=== PATIENT | female | born 1970 | race Caucasian/White ===

== ENCOUNTER 2020-02-26 13:03 | Emergency (ER) | payer BC, SELFPAY ==
[2020-02-26 13:40] VITALS: BP 142/83; PULSE 81; RESP 18; TEMP 37.6; O2SAT 99
--- NOTE | 2020-02-26 14:02 | ED.DENTAL ---
HPI - Dental/Oral General Chief complaint: Dental/Oral Stated complaint: Abcess/Tooth Time Seen by Provider: 02/26/20 14:03 Source: patient and RN notes reviewed History of Present Illness HPI Narrative: Patient is a 50-year-old female who presents the urgent care with complaints of right lower dental pain. Patient states that she cracked the tooth off sometime ago and is just now having the pain approximately for 4 days. Patient states she is taken Tylenol and ibuprofen without any relief. Denies of any known fever, nausea, vomiting. States that she has had some mild lower right jaw swelling. No other acute complaints. No acute distress noted. Patient read the plan of care. Related Data Home Medications Medication Instructions Recorded Confirmed diclofenac sodium PO 02/26/20 gabapentin 02/26/20 sertraline mg 02/26/20 Allergies Allergy/AdvReac Type Severity Reaction Status Date / Time hydromorphone AdvReac Intermediate Nausea and Verified 02/26/20 13:42 Vomiting Review of Systems Review of Systems: Narrative: CONSTITUTIONAL: Denies fever, chills, or sweats. EYES: Denies visual changes, redness, or discharge. ENT: Reports of lower right dental pain CARDIOVASCULAR: Denies chest pain, palpitations, or edema. RESPIRATORY: Denies cough or dyspnea. GASTROINTESTINAL: Denies abdominal pain, nausea, vomiting, or diarrhea. GENITOURINARY: Denies dysuria or hematuria. SKIN: Denies rash or itching. MUSCULOSKELETAL: Denies back pain, joint pain, or myalgia. NEUROLOGIC: Denies headache, numbness, or weakness. All other systems reviewed are negative, except as documented in HPI. [facility] Family History Family History (Updated 03/17/14 @ 07:13 by DOCTOR UNKNOWN) Father Family history of obesity Hypertension Family history of cardiac disorder Other Family history of lymphoma Social History Social History Smoking status: Current every day smoker Alcohol intake: never Comments At the time of my signature, I reviewed and agree with the nursing past medical, surgical, social, and family history. There is no relevant family history pertinent to the patient complaint. Exam Narrative: Exam Narrative: GENERAL: This is a well-nourished, well-developed patient, in no apparent distress. HEAD: normocephalic, atraumatic. EYES: PERRL. Sclera clear/white. Vision is grossly intact. EARS: External ears normal, auditory canals clear and without drainage, TMs normal without perforation. Hearing grossly intact. NOSE: External nose normal with no obvious nasal discharge, nares without redness, no rhinorrhea. THROAT: Mucous membranes moist, posterior pharynx clear. NECK: Neck supple, mild edema noted to the lower right jawline. DENTAL: Tooth #30, avulsed at the gumline with notable abscess to the lateral aspect. Large caries noted throughout. SKIN: warm, intact with no suspicious lesions or rash, good texture and turgor. NEURO: awake, alert, and oriented to person, place and time. There were no obvious focal neurologic abnormalities. EXTREMITIES: No clubbing, cyanosis, or edema. Course Vital Signs Vital signs: Vital Signs Temperature 99.6 F 02/26/20 13:40 Pulse Rate 81 02/26/20 13:40 Respiratory Rate 18 02/26/20 13:40 Blood Pressure 142/83 H 02/26/20 13:40 Pulse Oximetry 99 02/26/20 13:40 Temperature 99.6 F 02/26/20 13:40 Pulse Rate 81 02/26/20 13:40 Respiratory Rate 18 02/26/20 13:40 Blood Pressure 142/83 H 02/26/20 13:40 Pulse Oximetry 99 02/26/20 13:40 Reviewed?patient is informed that they may have pre-hypertension or hypertension based on a blood pressure reading in the department. I recommend the patient call the primary care provider listed on their discharge instructions or a physician of their choice this week to arrange follow-up for further evaluation of possible pre-hypertension or hypertension. MDM - Dental/Oral MDM Narrative Medical decision making narrative: Advis
== END 2020-02-26 14:23 | disposition home or self-care (01) ==
PROVIDERS: Emergency Provider Nurse Practitioner Family
DX: K04.7 Periapical abscess without sinus (principal); F17.200 Nicotine dependence, unspecified, uncomplicated; F41.9 Anxiety disorder, unspecified; F32.9 Major depressive disorder, single episode, unspecified; G62.9 Polyneuropathy, unspecified
CPT/HCPCS: 99213; G0463

== ENCOUNTER 2024-09-22 09:17 | Emergency (ER) | payer BC, SELFPAY ==
[2024-09-22 09:22] VITALS: BP 107/59; PULSE 104; RESP 20; TEMP 37.2; O2SAT 96
--- NOTE | 2024-09-22 09:46 | ED_ITS ---
HPI - URI/Sore Throat General Chief Complaint: Upper Respiratory Infection Stated Complaint: Fever/Body Aches/Shortness of Breath Time Seen by Provider: 09/22/24 09:46 Source: patient and RN notes reviewed Mode of arrival: ambulatory Limitations: no limitations History of Present Illness HPI Narrative: 54-year-old female with history of COPD and cigarette smoking presents with concern for 3 day history of body aches, shortness of breath, cough, fever. She reports runny nose, stuffy nose. She reports she is taking ibuprofen. She denies known sick contacts MD elicited complaint: cough Related Data Allergies Allergy/AdvReac Type Severity Reaction Status Date / Time hydromorphone AdvReac Intermediate Nausea and Verified 11/13/22 14:04 Vomiting Review of Systems Review of Systems: CONSTITUTIONAL: Reports malaise, chills, sweats, fever. EYES: Denies visual changes, redness, or discharge. ENT: Reports rhinorrhea, congestion. Denies sinus pain, otalgia and sore throat. CARDIOVASCULAR: Denies chest pain, palpitations, or edema. RESPIRATORY: Reports cough, dyspnea. GASTROINTESTINAL: Denies abdominal pain, nausea, vomiting, diarrhea SKIN: Denies rash or itching. MUSCULOSKELETAL: Reports myalgia. NEUROLOGIC: Denies headache. All systems reviewed & are unremarkable except as noted in HPI and below PMFSH Family History Family History Father Family history of obesity Hypertension Family history of cardiac disorder Other Family history of lymphoma Social History Social History Years smoked: 30 Smoking status: Current every day smoker Tobacco type: cigarettes Alcohol intake: current Alcohol use details: Rarely Substance use: never Substance use type: does not use Lack of Transportation: No Lack of Food: Never True Current Housing: I Have Housing Concerned About Future Housing: No Difficulty Paying Gas/Electric Bills: No Difficulty Paying for Meds: No Currently Unemployed: No Education: Associate Degree Difficulty w/ Childcare or Family Care: No Comments At time of signature, agree with nursing past medical, surgical, social and family history. There is no relevant family history pertinent to the presenting complaint Exam Narrative: GENERAL: Nontoxic-appearing, well-nourished, and in no acute distress. HEAD: Normocephalic EYES: PERRLA, conjunctivae clear ENT: Nares clear. Mucous membranes moist. TM pearly calhoun with sharp light reflex bilaterally; no tragal tenderness. Oropharynx not erythematous without lesions. Tonsils not enlarged and without exudate, no drooling, no hoarseness, no trismus, uvula midline. NECK: Supple. No lymphadenopathy CHEST: Mild scattered wheeze, otherwise Clear to auscultation, breath sounds equal. No rhonchi, rales, or stridor. No respiratory distress, speaks in full sentences. Harsh cough noted HEART: Regular rate and rhythm. No murmur heard. SKIN: Warm, dry, no rash. NEURO: Alert and oriented x3. PSYCH: Normal mood and affect Course Course Emergency Course: Patient is aware of diagnosis, understands and agrees to treatment plan. Anticipatory guidance given. Patient agrees to follow-up as directed and is aware of reasons to seek care at the emergency department. Portions of this record may have been created with voice recognition software Level of Care: Express Care Visit Vital Signs Vital signs: Vital Signs Temperature 99 F 09/22/24 09:22 Pulse Rate 104 H 09/22/24 09:22 Respiratory Rate 20 09/22/24 09:22 Blood Pressure 107/59 L 09/22/24 09:22 Pulse Oximetry 96 09/22/24 09:22 Oxygen Delivery Room Air 09/22/24 09:22 Temperature 99 F 09/22/24 09:22 Pulse Rate 104 H 09/22/24 09:22 Respiratory Rate 20 09/22/24 09:22 Blood Pressure 107/59 L 09/22/24 09:22 Pulse Oximetry 96 09/22/24 09:22 Oxygen Delivery Room Air 09/22/24 09:22 Reviewed. MDM - URI/Sore Throat MDM Narrative Medical decision making narrative: Differential diagnosis considered: Baker virus, strep pharyngitis, allergic rhinitis, upper respiratory tract infection, sinusitis, rhinosinusitis, nasopharyngitis. viral pharyngitis, otitis media, otitis externa, pneumonia, bronchitis, viral cough syndrome, viral syndrome, and influenza. Exam findings show no acute concerns or changes; patient is non-toxic appearing and is in no distress. Patient is appropriate for outpatient treatment and follow-up. Lab Data Attestation: I reviewed the patient's lab results. Critical Care Time Critical Care Time Critical Care Time: No Discharge Plan Discharge Clinical Impression: Bronchitis Patient Disposition: Home, Self-Care Condition: Stable Instructions: How to Use a Metered-Dose Inhaler (ED) Additional Instructions: Viral illness may last between 7-21 days; antibiotics do not cure viral illness and are NOT recommended at this time. Recommend antihistamine such as Benadryl at night time and Zyrtec or Augustina during the day Use inhaler as needed for cough, wheezing, shortness of breath or chest tightness. Also, recommend symptomatic treatment includes: rest, fluids, and increase humidity of the air at home. Recommend Acetaminophen as directed on the bottle to reduce fever, pain, headache. Avoid smoking/second-hand smoke. Please schedule a follow-up visit with your personal physician for further ev aluation and treatment within 3-5days. If your symptoms persist, change or worsen significantly before you can contact your personal physician then please, without delay, go to the emergency department for further evaluation. Patient Language: Niuean Prescriptions: New dextromethorphan-guaifenesin [Mucinex DM] 60-1,200 mg tablet extended release 12 hr 1 tablet PO Q12H Qty: 12 0RF albuterol sulfate 90 mcg/actuation HFA aerosol inhaler 2 puff INHALATION QID PRN (Reason: shortness of breath or wheezing) Qty: 8.5 0RF methylprednisolone [Medrol (Shilo)] 4 mg tablets,dose pack See Rx Instructions .ROUTE .COMPLEX Qty: 21 0RF Rx Instructions: orally per package directions No Action diclofenac sodium 50 mg tablet,delayed release (DR/EC) 50 mg PO TID Qty: 90 5RF sertraline 50 mg tablet See Rx Instructions .ROUTE .COMPLEX Qty: 30 0RF Dose Instruction: TAKE 1 TABLET BY MOUTH DAILY Rx Instructions: TAKE 1 TABLET BY MOUTH DAILY gabapentin 400 mg capsule 800 mg PO TID Qty: 180 5RF Follow-up/Referrals: Andriy,CHINA [place] [Primary Care Provider] - Stand Alone Forms: Work/School Release IP Time of Disposition: 09:51
--- OUTSIDE RECORDS SUMMARY | 2024-09-22 09:52 | XMS_ITS | Referral Summary ---
Author Organization [facility] Address [address] [place] [address] Care Team Providers Care Director Security Management Name Role Phone Unavailable Primary Care Provider Unavailabl e Source Comments [facility],non-owned Affiliates and Associated Physician Practices is amultiple site organization consisting of ambulatory clinics and hospital sitesin [place], [place], [place] and [place]. This disclosure is being madepursuant to the Care Everywhere program and may not contain all information available regarding this patient. Last updated 18.[facility] Social History Tobacco Use Types Packs/Day Years Used Date Smoking Tobacco: Never Assessed Sex and Gender Information Value Date Recorded Sex Assigned at Not on file Gender Identity Not on file Sexual Orientation Not on file Last Filed Vital Signs Vital Sign Reading Time Taken Comments Blood Pressure 130/82 09/10/2017 2:27 PM HAIR TINTER Pulse 83 09/10/2017 2:27 PM HAIR TINTER Temperature - - Respiratory Rate - - Oxygen Saturation 95% 09/10/2017 2:27 PM HAIR TINTER Inhaled Oxygen Concentration - - Weight 93.9 kg (207 lb) 09/10/2017 2:27 PM HAIR TINTER Height 162.6 cm (5' 4 ) 09/10/2017 2:27 PM HAIR TINTER Body Mass Index 35.53 09/10/2017 2:27 PM HAIR TINTER Plan of Treatment Not on file
--- OUTSIDE RECORDS SUMMARY | 2024-09-22 09:52 | XMS_ITS | Patient Health Summary ---
Author Organization [facility] Address [address] [address] Care Team Providers Care Nurse Emergency Name Role Phone Unavailable Primary Care Provider Unavailabl e Note from [facility],non-owned Affiliates and Associated Physician Practices is amultiple site organization consisting of ambulatory clinics and hospital sitesin [place], [place], [place] and [place]. This disclosure is being madepursuant to the Care Everywhere program and may not contain all information available regarding this patient. Last updated 18.[facility] Social History Tobacco Use Types Packs/Day Years Used Date Smoking Tobacco: Never Assessed Sex and Gender Information Value Date Recorded Sex Assigned at Not on file Gender Identity Not on file Sexual Orientation Not on file Last Filed Vital Signs Vital Sign Reading Time Taken Comments Blood Pressure 130/82 09/10/2017 2:27 PM AMORTIZATION SCHEDULE CLERK Pulse 83 09/10/2017 2:27 PM AMORTIZATION SCHEDULE CLERK Temperature - - Respiratory Rate - - Oxygen Saturation 95% 09/10/2017 2:27 PM AMORTIZATION SCHEDULE CLERK Inhaled Oxygen Concentration - - Weight 93.9 kg (207 lb) 09/10/2017 2:27 PM AMORTIZATION SCHEDULE CLERK Height 162.6 cm (5' 4 ) 09/10/2017 2:27 PM AMORTIZATION SCHEDULE CLERK Body Mass Index 35.53 09/10/2017 2:27 PM AMORTIZATION SCHEDULE CLERK Procedures * CARDIAC PROCEDURE ORDER(Performed 11/14/2017) * EVENT MONITOR(Performed 10/31/2017) * ECHO STRESS W DOBUTAMINE(Performed 09/30/2017) * EKG 12-LEAD(Performed 09/10/2017) * GROSS + MICRO EXAM(Performed 09/11/2002) Results * CARDIAC PROCEDURE ORDER (11/14/2017 12:11 PM CDT) Narrative 11/14/2017 12:11 PM CDT Ordered by an unspecified provider. Scanned Document CARDIAC SERVICES ORD ERABLES * EVENT MONITOR (10/31/2017 10:08 AM CDT) Narrative [facility] - 10/31/2017 10:08 AM CDT Ly Rivera underwent cardiac monitoring with a 30 day event monitor. Results are as follows: Quality of Tracings: Fair, some baseline artifact present. Rhythm: Sinus. Rates: 54 1 45 with a mean of 76 bpm. Ectopy: Rare PVCs with a ventricular ectopy burdened during monitoring period of less than 1%. Symptoms: Chest pain, short of breath, tired, lightheaded (multiple transmissions), which correlated with sinus rhythm and sinus tachycardia, rates 66 1 15 bpm. Please feel free to contact me with any questions, thank you. Procedure Note Provider, MD Lizett - 12/26/2017 Ly Rivera underwent cardiac monitoring with a 30 day event monitor.Results are as follows: Quality of Tracings: Fair, some baseline artifact present. Rhythm: Sinus. Rates: 54 1 45 with a mean of 76 bpm. Ectopy: Rare PVCs with a ventricular ectopy burdened during monitoringperiod of less than 1%. Symptoms: Chest pain, short of breath, tired, lightheaded (multipletransmissions), which correlated with sinus rhythm and sinus tachycardia,rates 66 1 15 bpm. Please feel free to contact me with any questions, thank you. Denis Abdi CD CARDIAC SERVICES ORD ERABLES [facility] * ECHO STRESS TEST W DOBUTAMINE (09/30/2017 3:53 PM CDT) Anatomical Region Laterality Modality Other Narrative 09/30/2017 3:53 PM CDT STRESS ECHO TEST REPORT NAME: Ly Rivera : 1970 AGE: 47 y.o. SEX: female Referring Physician: No referring provider defined for this encounter. Ordering Physician: Dr. Miller Primary Care Physician: Shraddha Miller Date of Test: 09/26/17 TAPE#: Head Of Integrated Media: JANINE Height: Weight: BSA: Introduction: Ly Rivera is a 47 y.o. female with syncope Indication: Syncope Coronary Event: None Atherosclerotic Risk Profile: Smoking,;Abnormal Lipids, 2 Medications: currently has no medications in their medication list. Allergies: No Known Allergies Resting EKG: SR with diffuse TW abn +/- LAE PEAK WORKLOAD: Protocol: Fabian Time: 3.01 Mph: 1.7 mph %Grade (kpm): 10 kpm INDICATIONS FOR STOPPING: Protocol RESULTS: Rest BP: 112/62 Rest HR: 88 %Max HR: 97 Peak BP: 132/68 Peak HR: 164 Peak METs: 4.6 Contrast: CLINICAL FINDINGS STRESS ECG Exercise stress was maximal (>=85%). Chest pain during exercise was absent. ST depression during exercise was at most 1mm upsloping ST depressions (non diagnostic). ST elevation was absent. T wave changes were absent. The patient did not require treatment with nitroglycerin.Exercise-induced arrhythmias were not noted. CLINICAL FINDINGS STRESS ECHO Resting wall motion was normal. Rest LVEF was: 55% . Immediately post-exercise LV function was normal. Exercise LVEF was 70%. Chamber Measurements LV Internal Dimension Systole (cm): 4.7 cm LV Internal Dimension Diastole (cm): 3.4 cm Septal Thickness (cm): 1.1 cm Posterior Wall Thickness (cm): 0.9 cm Aortic Root Measurement (cm): 3.2 cm Left Atrium Measurement (cm): 3.8 cm LVOT Diameter (cm): 2.1 cm Ejection Fraction 55% Color Flow and Doppler Waveform Analysis Aortic Velocities: AV Max (m/s): 1.4 m/s LVOT max (m/s): 0.9 m/s Mitral Velocities: E (m/s): 0.6 m/s A (m/s): 0.4 m/s Tricuspid Velocities: PulmonicVelocities: Max Pulmonic Valve Velocity (m/s): 1.1 m/s OVERALL INTERPRETATION: - Normal left ventricular size and systolic function. Ejection fraction is estimated to be 55%. - Normal right ventricular size and systolic function. - Normal aortic valve structure and velocities. No aortic regurgitation. No aortic stenosis. - Normal mitral valve structure and velocities. Mild mitral regurgitation. - Normal LV diastolic function. - Tricuspid valve not well seen. - Inadequate tricuspid regurgitation jet to estimate right ventricular systolic pressure. - Pulmonic valve not well seen. No pulmonic stenosis or regurgitation seen. - Normal left and right atrial sizes. OVERALL INTERPRETATION: This is a normal study. There is no evidence of ischemia. Blood pressure response was appropriate. Heart rate response was appropriate. Exercise tolerance was fair. ECG Reading: Martín Llamas MD Stress Echo Reading: Rosario Carranza MD Procedure Note Provider, MD Lizett - 12/26/2017 STRESS ECHO TEST REPORT NAME: Ly Rivera : 1970 AGE: 47 y.o. SEX: female Referring Physician: No referring provider defined for this encounter. Ordering Physician: Dr. Miller Primary Care Physician: Shraddha Miller Date of Test: 09/26/17 TAPE#: Head Of Integrated Media: JANINE Height: Weight: BSA: Introduction: Ly Rivera is a 47 y.o. female with syncope Indication: Syncope Coronary Event: None Atherosclerotic Risk Profile: Smoking,;Abnormal Lipids, 2 Medications: currently has no medications in their medication list. Allergies: No Known Allergies Resting EKG: SR with diffuse TW abn +/- LAE PEAK WORKLOAD: Protocol: Fabian Time: 3.01 Mph: 1.7 mph %Grade (kpm): 10 kpm INDICATIONS FOR STOPPING: Protocol RESULTS: Rest BP: 112/62 Rest HR: 88 %Max HR: 97 Peak BP: 132/68 Peak HR: 164 Peak METs: 4.6 Contrast: CLINICAL FINDINGS STRESS ECG Exercise stress was maximal (>=85%). Chest pain during exercise wasabsent. ST depression during exercise was at most 1mm upsloping STdepressions (non diagnostic). ST elevation was absent. T wave changes wereabsent. The patient did not require treatment with nitroglycerin.Exercise-induced arrhythmias were notnoted. CLINICAL FINDINGS STRESS ECHO Resting wall motion was normal. Rest LVEF was: 55% . Immediatelypost-exercise LV function was normal. Exercise LVEF was 70%. Chamber Measurements LV Internal Dimension Systole (cm): 4.7 cm LV Internal Dimension Diastole (cm): 3.4 cm Septal Thickness (cm): 1.1 cm Posterior Wall Thickness (cm): 0.9 cm Aortic Root Measurement (cm): 3.2 cm Left Atrium Measurement (cm): 3.8 cm LVOT Diameter (cm): 2.1 cm Ejection Fraction 55% Color Flow and Doppler Waveform Analysis Aortic Velocities: AV Max (m/s): 1.4 m/s LVOT max (m/s): 0.9 m/s Mitral Velocities: E (m/s): 0.6 m/s A (m/s): 0.4 m/s Tricuspid Velocities: PulmonicVelocities: Max Pulmonic Valve Velocity (m/s): 1.1 m/s OVERALL INTERPRETATION: - Normal left ventricular size and systolic function. Ejection fraction isestimated to be 55%. - Normal right ventricular size and systolic function. - Normal aortic valve structure and velocities. No aortic regurgitation.No aortic stenosis. - Normal mitral valve structure and velocities. Mild mitralregurgitation. - Normal LV diastolic function. - Tricuspid valve not well seen. - Inadequate tricuspid regurgitation jet to estimate right ventricularsystolic pressure. - Pulmonic valve not well seen. No pulmonic stenosis or regurgitationseen. - Normal left and right atrial sizes. OVERALL INTERPRETATION: This is a normal study. There is no evidence of ischemia. Blood pressure response was appropriate. Heart rate response wasappropriate. Exercise tolerance was fair. ECG Reading: Martín Llamas MD Stress Echo Reading: Rosario Carranza MD Tha Gibson MD ECHOCARDIOGRAPHY RA DIANT * EKG 12-LEAD (09/10/2017 2:26 PM AMORTIZATION SCHEDULE CLERK) Tha Gibson MD ECG ORDERABLES [facility] * GROSS + MICRO EXAM (09/11/2002 10:43 AM AMORTIZATION SCHEDULE CLERK) Result CASE NUMBER [id number] Comment: ORDERING PHYSICIAN ZIA CARVAJAL SPECIMEN TYPE Placenta Date 09/13/2002 Physician Tejas Gross Description Received fresh, labeled placenta. The specimen consists of a single placental disc with attached membranes and cord and weighs 520 gms in aggregate. The placental disc measures 17.2 x 15.1 and up to 1.7 cm in thickness. The membranes are translucent pinkish calhoun color and are attached marginally. The umbilical cord has a somewhat eccentric insertion, inserting up to 5.2 cm from the nearest margin, it measures 14.0 cm in length and up to 1.0 cm in diameter. On cut section three vessels are identified. The surface has a glistening blue calhoun color with the usual vascular arcade without nodules. Present on the surface is an ill defined area of bright red hemorrhagic discoloration measuring 14.8 cm x 7.0 cm. This area is adjacent to the umbilical cord on one edge. The maternal surface has a soft deep pinkish calhoun color with a small amount of clotted blood. On serial sectioning no infarcts are grossly identified. Tape Transferrer sections are submitted as follows A-umbilical cord and membranes, B- surface with area of bright red hemorrhagic discoloration, C-maternal surface. R/[facility] Microscopic Exam Microscopic examination reveals an umbilical cord with three vascular channels with no evidence of funisitis or thrombosis. The chorioamniotic membranes are edematous with areas of fresh hemorrhage, but no evidence of acute chorioamnionitis or meconium. The chorionic villi are small, mature, well vascularized with no evidence of villitis or infarction. Numerous syncytial knots are noted. The chorionic plate shows a area of fresh extravasation of red blood cells. GM/ Diagnosis I. Placenta A. Mature placenta, 520 gms. B. Three vessel umbilical cord -No pathologic changes C. Chorioamniotic membranes -No pathologic changes GM/ Format Proofreader [facility] Pathologist Bela Crespo M.D. [place]. 09/13/2002 1031 <1> CPT code 28835 MISCELLANEOUS SAMPLES / Unknown 09/11/2002 10:43 AM AMORTIZATION SCHEDULE CLERK 09/11/2002 10:44 AM AMORTIZATION SCHEDULE CLERK Historical Provider LAB - PATHOLOGY/C YTOLOGY ORDERABLES
--- OUTSIDE RECORDS SUMMARY | 2024-09-22 09:52 | XMS_ITS | Clinical Summary ---
Author Organization [facility] Address [address] [place] [address] Care Team Providers Care Commercial Agent Name Role Phone Unavailable Primary Care Provider Unavailabl e Source Comments [facility],non-owned Affiliates and Associated Physician Practices is amultiple site organization consisting of ambulatory clinics and hospital sitesin [place], [place]. This disclosure is being madepursuant to the Care Everywhere program and may not contain all information available regarding this patient. Last updated 18.[facility] [employer] Social History Tobacco Use Types Packs/Day Years Used Date Smoking Tobacco: Never Assessed Sex and Gender Information Value Date Recorded Sex Assigned at Not on file Gender Identity Not on file Sexual Orientation Not on file Last Filed Vital Signs Vital Sign Reading Time Taken Comments Blood Pressure 130/82 09/10/2017 2:27 PM FOUNDRY FINISHER Pulse 83 09/10/2017 2:27 PM FOUNDRY FINISHER Temperature - - Respiratory Rate - - Oxygen Saturation 95% 09/10/2017 2:27 PM FOUNDRY FINISHER Inhaled Oxygen Concentration - - Weight 93.9 kg (207 lb) 09/10/2017 2:27 PM FOUNDRY FINISHER Height 162.6 cm (5' 4 ) 09/10/2017 2:27 PM FOUNDRY FINISHER Body Mass Index 35.53 09/10/2017 2:27 PM FOUNDRY FINISHER Plan of Treatment Health Maintenance Due Date Last Done Comments COLOGUARD (AGES 45-75) - COL ON CA SCREENING 1968 COLON MONITORING 1968 COLONOSCOPY - COLON CA SCREENING 1968 CT COLONOGRAPHY - COLON CA SCREENING 1968 Colorectal Cancer Screening 1968 FIT - COLON CA SCREENING 1968 FLEX SIG - COLON CA SCREENING 1968 LIPID TESTING 1968 MAMMOGRAM 1968 PAP SMEAR 1968 HIV SCREENING 01/06/1983 HEPATITIS C SCREENING 01/02/1986 DTAP/TDAP/TD VACCINES (1 - Tdap) 01/06/1987 HEPATITIS B VACCINE (1 of 3 - 19+ 3-dose series) 01/06/1987 SCREENING FOR DIABETES 10/29/2017 PNEUMOCOCCAL VACCINE 50+ (1 of 1 - PCV) 01/06/2018 ZOSTER VACCINE (1 of 2) 01/06/2018 COVID-19 VACCINE (1 - 2023-2 5 season) 2024 INFLUENZA VACCINE (#1) 2024 DEPRESSION SCREENING 07/21/2024 HIB VACCINE Aged Out No longer eligi ble based on patient's age to complete this topic HPV VACCINE Aged Out No longer eligi ble based on patient's age to complete this topic MENINGOCOCCAL (Group B) VACCINE Aged Out No longer eligible based on patient's age to complete this topic MENINGOCOCCAL VACCINE Aged Out No albert rehan eligible based on patient's age to complete this topic PNEUMOCOCCAL VACCINE Aged Out No long er eligible based on patient's age to complete this topic
--- OUTSIDE RECORDS SUMMARY | 2024-09-22 09:53 | XMS_ITS | Clinical Summary ---
Author Organization [facility] Address [address] [place] [address] Phone Care Team Providers Care Teacher Music Name Role Phone Edilma Ashraf PAC Primary Care Pro vider Bernarda Green FOOD SAMPLER, HIGHWAY LANDSCAPE ARCHITECT Unavailable [phone]- [phone] Valerio Anderson PAC Unavailable [phone] Allergies Active Allergy Reactions Criticality Noted Date Comments Hydromorphone Hcl Unknown 01/02/2017 Medications diclofenac (VOLTAREN) 50 MG Tablet Delayed Response Take 50 mg by mouth 3 times daily. Active albuterol 108 (90 Base) MCG/ACT Aerosol Solution take 2 Puffs by inhalation every 6 hours as needed for Cough. 6.7 g 2 Active gabapentin (NEURONTIN) 600 MG TabletIndicatio ns:Neuropathy Take 1 Tablet by mouth 3 times daily. 270 Tablet 3 4 Active sertraline (ZOLOFT) 100 MG TabletIndicatio ns:Anxiety TAKE 1 TABLET BY MOUTH DAILY 90 Tablet 1 5 Active Active Problems Problem Noted Date Diagnosed Date Neuropathy 05/13/2023 Multinodular goiter (nontoxic) 11/25/2017 Benign thyroid cyst 11/25/2017 Primary osteoarthritis involving multiple joints 01/02/2017 Overview (05/13/2023): Takes antonella Aware of risk with zoloft Has been on both for years Does not have any issues taking both Anxiety 01/02/2017 Restless leg 01/02/2017 Screening mammogram, encounter for 01/02/2017 Encounters Date Type Department Care Team Description 07/20/2024 Refill F [facility] - Primary Care - Michelle [address] [place] [address] Edilma Ashraf, SHRUTHI Medication Refill from Last 3 Months Immunizations Immunization Administration Dates Next Due Influenza Vaccine, Quadrivalent, PF 07/31/2017 Pneumococcal Vaccine Adult - 23 Valent 8 Family History Medical History Relation Name Comments Heart Disease Father Hypertension Father Chronic Obstructive Pulmonary Disease Mother Goiter Mother Heart Disease Mother Relation Name Status Comments Father Mother Social History Tobacco Use Types Packs/Day Years Used Date Smoking Tobacco: Every Day Cigarettes 0.5 36.2 Started: 07/21/1988 Smokeless Tobacco: Never Alcohol Use Standard Drinks/Week Comments No 0 (1 standard drink = 0.6 oz pur e alcohol) Comments No Sex and Gender Information Value Date Recorded Sex Assigned at Not on file Legal Sex Female 12:26 AM CDT Gender Identity Not on file Sexual Orientation Not on file Occupation Industry Job Start Date Job End Date [employer] Not on file Not on file Not on file Last Filed Vital Signs Vital Sign Reading Time Taken Comments Blood Pressure 126/70 02/03/2024 11:49 AM CDT Pulse 68 02/03/2024 11:49 AM CDT Temperature 36.1 C (96.9 F) 01/11/2024 5:41 PM CDT Respiratory Rate 16 02/03/2024 11:49 AM CDT Oxygen Saturation 96% 02/03/2024 11:49 AM CDT Inhaled Oxygen Concentration - - Weight 83.9 kg (185 lb) 02/03/2024 11:49 AM CDT Height 162.6 cm (5' 4 ) 02/03/2024 11:49 AM CDT Body Mass Index 31.76 02/03/2024 11:49 AM CDT Plan of Treatment Health Maintenance Due Date Last Done Comments Hepatitis C Virus (HCV) Screening 1968 TdaP Immunization 1968 Hepatitis B Immunization (1 of 3 - 19+ 3-dose series) 01/06/1987 Pap Smear 01/06/1989 Cervical Cancer Screening (CCS) 01/06/1998 HPV/Cotest 01/06/1998 Colonoscopy 01/06/2013 Colorectal Cancer Screening 01/06/2013 Cologuard 01/06/2018 Immunochemical Fecal Occult Blood 01/06/2018 Zoster Immunization (1 of 2) 01/06/2018 Pneumococcal Immunization (5 0+ years) (2 of 2 - PCV) 10/27/2018 10/27/2017 Mammogram 11/24/2018 11/24/2017 Influenza Immunization (#1) 2024 07/31/2017 SARS-COV-2 Immunization (3 - season) 2024 01/24/2021, 12/27/2020 Respiratory Syncytial Virus (RSV) Immunization (Adult) (1 - 1-dose 75+ series) 01/06/2043 Pneumococcal Immunization Combined Discontinued 10/27/2017 Meningococcal Immunization (ACWY) Aged Out No longer eligible based on patient's age to complete this topic Rotavirus Immunization Aged Out No lo nger eligible based on patient's age to complete this topic Procedures Procedure Name Priority Date/Time Associated Diagnosis Comments MIGUEL SCREENING BILATERAL DIGITAL W CAD Routine 11/24/2017 1:11 PM CDT Screening mammogram, encounter for from Last 3 Months or Most Recently Relevant to Health Maintenance Results * MIGUEL SCREENING BILATERAL DIGITAL W CAD (11/24/2017 1:11 PM CDT) Anatomical Region Laterality Modality breast Bilateral Mammography 11/24/2017 12:4 7 PM CDT Narrative 11/24/2017 5:43 PM CDT - MIGUEL SCREENING BILATERAL DIGITAL W CAD BILATERAL DIGITAL SCREENING MAMMOGRAM WITH CAD WITH MEDIOLATERAL OBLIQUE CRANIOCAUDAL: 11/24/2017 The study was acquired using digital technology and interpreted from soft copy. Current study was also evaluated with ICAD version 7.2. CLINICAL: New baseline study. Patient has no complaints. No personal history of cancer. No family history of breast cancer. COMPARISONS: No prior exams were available for comparison. BREAST TISSUE:There are scattered fibroglandular densities in both breasts. FINDINGS: No significant masses, calcifications, or other findings are seen in either breast. IMPRESSION: BI-RAD 1 NEGATIVE There is no mammographic evidence of malignancy. A 1 year screening mammogram is recommended. The patient has been or will be contacted. The patient will be entered into a reminder system with a target due date of 1 year for her next screening exam. Electronically signed by: Simin burrell/joslyn:11/24/2017 14:27:15 Vice President And Portfolio Manager: Yaima Headley(Abhinav), [facility] letter sent: Normal Exam Reading location: ROTH BI-RADS: 1 Negative Procedure Note Simin Winters MD - 11/24/2017 - MIGUEL SCREENING BILATERAL DIGITAL W CAD BILATERAL DIGITAL SCREENING MAMMOGRAM WITH CAD WITH MEDIOLATERAL OBLIQUE CRANIOCAUDAL: 11/24/2017 The study was acquired using digital technology and interpreted from soft copy. Current study was also evaluated with Telepartner version 7.2. CLINICAL: New baseline study. Patient has no complaints. No personal history of cancer. No family history of breast cancer. COMPARISONS: No prior exams were available for comparison. BREAST TISSUE:There are scattered fibroglandular densities in both breasts. FINDINGS: No significant masses, calcifications, or other findings are seen in either breast. IMPRESSION: BI-RAD 1 NEGATIVE There is no mammographic evidence of malignancy. A 1 year screening mammogram is recommended. The patient has been or will be contacted. The patient will be entered into a reminder system with a target due date of 1 year for her next screening exam. Electronically signed by: Simin burrell/joslyn:11/24/2017 14:27:15 Vice President And Portfolio Manager: Yaima Headley(Abhinav), [facility] letter sent: Normal Exam Reading location: ROTH BI-RADS: 1 Negative Charles Gutierrez DO IMG MAMMO ORDERABLES Final Resul t from Last 3 Months or Most Recently Relevant to Health Maintenance Insurance [facility] Care Teams Teacher Music Relationship Specialty Start Date End Date Edilma Ashraf, [facility] [address] [place] [address] PCP - General Physician Bucket Operator 05/13/23 Bernarda Green, FOOD SAMPLER, [facility] [address] [place] [address] Nurse Practitioner Advanced Practice Nurse 10/01/23 Valerio Anderson, [facility] [address] [place] [address] Physician Bucket Operator Physician Bucket Operator 01/13/24
[2024-09-22 09:58] LABS: EDCOVIDSCREEN Negative (Negative); EDINFLUASCREEN Negative (Negative); EDINFLUBSCREEN Negative (Negative)
== END 2024-09-22 09:58 | disposition home or self-care (01) ==
PROVIDERS: Emergency Provider Nurse Practitioner; PCP Physician Assistant
DX: J40 Bronchitis, not specified as acute or chronic (principal); Z20.822 Contact with and (suspected) exposure to COVID-19; F17.210 Nicotine dependence, cigarettes, uncomplicated; J44.9 Chronic obstructive pulmonary disease, unspecified
CPT/HCPCS: 87426; 87804; 99213; G0463